=== PATIENT | female | born 1965 ===

== ENCOUNTER 2022-07-20 08:58 | Emergency (ER) | payer BC ==
[2022-07-20] MEDS ORDERED: Sodium Chloride 0.9% 10 ML Syringe FLUSH PRN (09:14)
[2022-07-20] MEDS ORDERED: Sodium Chloride 0.9% 1,000 ML IV ONE (09:14)
[2022-07-20] MEDS ORDERED: HYDROmorphone 0.5 MG/0.5 ML Syringe IVPUSH ONE (09:17)
[2022-07-20] MEDS: Ondansetron 4 MG/2 ML SDV IV ONE ×2 (09:59→11:21)
[2022-07-20 10:25] LABS: ANION GAP 18.6 mEq/L (7-13)
[2022-07-20] MEDS ORDERED: Iopamidol 612 MG/ML 100 ML Bottle IVPUSH ONE (10:26)
[2022-07-20] MEDS ORDERED: Piperacillin/Tazobactam 4.5 GM in Sodium Chloride 0.9% 100 ML IV ONE (10:58)
[2022-07-20] MEDS ORDERED: Ondansetron 4 MG/2 ML SDV IV ONE (11:14)
[2022-07-20] MEDS ORDERED: HYDROmorphone 1 MG/ML Syringe IVPUSH ONE (11:14)
== END 2022-07-20 11:40 ==
LOC: DL.ED 08:58
DX: K35.30 Acute appendicitis with localized peritonitis, without perforation or gangrene (principal)
CPT/HCPCS: 36415; 74177; 80053; 81001; 83605; 85025; 96365; 96375; 96376; 99285; 99285-25; J1170; J2405; J2543; J3490; J7030; Q9967